=== PATIENT | female | born 1970 | race Caucasian/White ===

== ENCOUNTER 2021-08-17 22:59 | Emergency (ER) | payer BC, OTHER ==
[~2021-08-17] VITALS: Ht 162.6 cm; Wt 91.6 kg
--- NOTE | 2021-08-18 00:06 | ED Lower Extremity ---
General Chief Complaint: Lower Extremity Stated Complaint: L ANKLE PAIN;SWELLING;CAN'T WALK ON IT Nursing Triage Note: PT ARRIVED BY PRIVATE VEHICLE WITH CHEIF COMPLAINT OF LEFT ANKLE/FOOT INJURY. PT WAS ALERT, ORIENTED X 4 AND AMBULATORY. PT STATED THAT THIS OCCURRED AT 1700 WHEN WE WERE WALKING OUT OF THE [facility] AND SHE JUST FELL ROLLING HER LEFT ANKLE OUTWARDS. PT STATED SHE DID NOT TRIP BUT JUST FELL. PT STATED THE LATERAL PART OF FOOT/ANKLE HURT AND HAS SWELLING. PT BROUGHT INTO ER BY WHEELCHAIR BECAUSE SHE CANNOT WALK ON IT. PT HAS BEEN ICING IT AND TOOK ADVIL AT 1800. PT BTW 1700 AND PRESENT WAS AT A CONCERT. PT HAS HIGH BLOOD PRESSURE AND HAS NOT TAKEN HER LISINIPRIL YET. PT HAS AN ALLERGY TO HYDROCODONE WHICH CAUSES ITCHING AND ENERGY. VITALS WERE DONE. REPORT WAS GIVEN TO PROVIDER. Source: patient Exam Limitations: no limitations History of Present Illness Date Seen by Provider: Aug 17, 2021 Time Seen by Provider: 23:20 Initial Comments Patient presents the ER by private conveyance with her significant other chief complaint that she stepped out of her car in a parking lot and rolled her left ankle inwards. No previous injury to this ankle. No history of surgeries. No significant medical history. Not on blood thinners. Having some swelling and pain despite ice packs and Advil. Allergies and Home Medications Allergies Coded Allergies: hydrocodone (Verified Allergy, Unknown, ITCHING AND ENERGY, 08/17/21) Patient Home Medication List Home Medication List Reviewed: Yes Review of Systems Constitutional: No chills, No diaphoresis EENTM: No ear discharge, No ear pain Respiratory: No cough, No short of breath Cardiovascular: No edema, No Hx of Intervention Gastrointestinal: No abdominal pain, No constipation, No diarrhea Genitourinary: No discharge, No dysuria All Other Systems Reviewed Negative Unless Noted: Yes Past Jkixvgp-Kvhaxi-Cmmemj Hx Patient Social History Tobacco Use?: No Smoking Status: Never a Smoker Substance use?: No Alcohol Use?: No Pt feels they are or have been: No Immunizations Up To Date First/Initial COVID19 Vaccinat: moderna Second COVID19 Vaccination Richie: moderna COVID19 Vaccine Nuclear Medicine Tech: moderna Physical Exam Vital Signs Vital Signs - First Documented 08/17/21 23:06 Temp 36.3 Pulse 120 Resp 16 B/P (MAP) 175/125 (142) Pulse Ox 97 O2 Delivery Room Air Capillary Refill : Less Than 3 Seconds Height, Weight, BMI Height: '" Weight: lbs. oz. kg; 34.00 BMI Method: General Appearance: WD/WN, mild distress HEENT: PERRL/EOMI, pharynx normal Neck: full range of motion, normal inspection Cardiovascular: normal peripheral pulses, regular rate, rhythm Respiratory: no respiratory distress, no accessory muscle use Ankles: right ankle non-tender, right ankle normal inspection, right ankle normal range of motion, right ankle no evidence of injury; left ankle bone tenderness (Posterior lateral malleolus as well as some of the posterior medial malleolus), left ankle soft tissue tenderness, left ankle swelling Feet: bilateral foot non-tender, bilateral foot normal inspection, bilateral foot normal range of motion, bilateral foot no evidence of injury Neurologic/Psychiatric: no motor/sensory deficits, normal mood/affect Skin: normal color, warm/dry Progress/Results/Core Measures Results/Orders My Orders Orders - JOYCE DANIEL Ankle, Left, 3 Views (08/17/21 23:36) Foot, Left, 3 Views (08/18/21 00:06) Vital Signs/I&O 08/17/21 08/18/21 23:06 00:51 Temp 36.3 Pulse 120 120 Resp 16 16 B/P (MAP) 175/125 (142) 175/125 Pulse Ox 97 97 O2 Delivery Room Air Room Air Blood Pressure Mean: 142 Diagnostic Imaging Diagonstic Imaging: Xray Plain Films/CT/US/NM/MRI: ankle (Left foot) Comments No acute osseous abnormality. [facility] [place], [place] NAME: NATALIE KUMAR [facility] REC#: [id number] PT STATUS: DEP ER : 1970 PHYSICIAN: JOYCE DANIEL MD ADMIT DATE: 08/17/21/ER Signed Date of Exam:08/17/21 ANKLE, LEFT, 3 VIEWS Indication: Left ankle injury with pain and swelling. Comparison: None. Discussion: Three views of left ankle were obtained. Well-corticated ossicle along the distal lateral malleolus is consistent with an old injury. There is marked lateral soft tissue swelling. There is no acute fracture or dislocation identified. Alignment is anatomic. Impression: 1. Left ankle soft tissue swelling. No acute fracture. Dictated by: Dictated on workstation # [id number] Dict: 08/18/21 0631 Trans: 08/18/211510 JENNIFER [id number] Interpreted by: TEDDY CAMPO MD Electronically signed by: TEDDY CAMPO MD 08/18/211510 [facility] [place], [place] NAME: NATALIE KUMAR [facility] REC#: [id number] PT STATUS: DEP ER : 1970 PHYSICIAN: JOYCE DANIEL MD ADMIT DATE: 08/17/21/ER Signed Date of Exam:08/18/21 FOOT, LEFT, 3 VIEWS Indication: Left foot injury with pain and swelling. Comparison: None. Discussion: Three views of left foot were obtained. No displaced fracture or dislocation. Alignment is anatomic. Joint spaces are maintained. Soft tissues are unremarkable. No foreign body. Impression: 1. Negative left foot. Dictated by: Dictated on workstation # [id number] Dict: 08/18/21 0632 Trans: 08/18/211510 JENNIFER [id number] Interpreted by: TEDDY CAMPO MD Electronically signed by: TEDDY CAMPO MD 08/18/211510 Reviewed: Reviewed by Il Departure Impression Primary Impression: Sprain and strain of ankle Disposition: HOME, SELF-CARE Condition: Stable Departure-Patient Inst. Decision time for Depature: 00:23 Referrals: NO,LOCAL PHYSICIAN (PCP/Family) Primary Care Physician Patient Instructions: Ankle Sprain (DC) Add. Discharge Instructions: Keep your ankle elevated above the level of your heart while at rest to reduce swelling. Ice for 20 minutes on every 2 hours for the next 2 days while awake. Tylenol and ibuprofen as necessary for pain. Use the crutches as necessary. Weightbearing as tolerated. All discharge instructions reviewed with patient and/or family. Voiced understanding. Work/School Note: Work Release Form Date Seen in the Emergency Department: Aug 18, 2021 Return to Work: Aug 20, 2021 Restrictions: Need Release from Doctor Other Restrictions Listed Below: Minimize weightbearing as needed until 08/26/2021. Restrictions: May use crutches until 08/26/2021. JOYCE DANIEL Aug 18, 2021 00:06
[2021-08-18 00:51] VITALS: BP 175/125
--- NOTE | 2021-08-18 06:33 | Diagnostic Imaging Report ---
Indication: Left foot injury with pain and swelling. Comparison: None. Discussion: Three views of left foot were obtained. No displaced fracture or dislocation. Alignment is anatomic. Joint spaces are maintained. Soft tissues are unremarkable. No foreign body. Impression: 1. Negative left foot. Dictated by: Dictated on workstation # [id number]
--- NOTE | 2021-08-18 06:33 | Diagnostic Imaging Report ---
Indication: Left ankle injury with pain and swelling. Comparison: None. Discussion: Three views of left ankle were obtained. Well-corticated ossicle along the distal lateral malleolus is consistent with an old injury. There is marked lateral soft tissue swelling. There is no acute fracture or dislocation identified. Alignment is anatomic. Impression: 1. Left ankle soft tissue swelling. No acute fracture. Dictated by: Dictated on workstation # [id number]
== END 2021-08-18 00:42 | disposition home or self-care (01) ==
LOC: ER 23:03
DX: S93.402A Sprain of unspecified ligament of left ankle, initial encounter (principal); X50.1XXA Overexertion from prolonged static or awkward postures, initial encounter
CPT/HCPCS: 73610; 73630